=== PATIENT | female | born 1980 | race Caucasian/White ===

== ENCOUNTER 2017-01-14 22:10 | Emergency (ER) | payer OTHER ==
[~2017-01-14] VITALS: Ht 160 cm; Wt 68.0 kg
[2017-01-14 22:15] VITALS: BP 137/82
[2017-01-14] MEDS ORDERED: ONDA4TAB10 SL (22:50)
[2017-01-14] MEDS ORDERED: PRED50TA PO (22:50)
[2017-01-14] MEDS ORDERED: AMOX1TAB61 PO (22:50)
--- NOTE | 2017-01-14 22:51 | PHYS DOC ---
Past Medical History Past Medical History: No Pertinent History Past Surgical History: Pacemaker Alcohol Use: None Drug Use: None Adult General Chief Complaint Chief Complaint: EARACHE/EAR PAIN HPI HPI Patient is a 36 year old female who presents with nasal congestion for one week. Patient states she believes she has a sinus infection because she has had similar symptoms before. She states she has tried [id number] medications with no relief. She is currently stating she is also having dental pain as well. Review of Systems Review of Systems Constitutional: Denies fever or chills [] Eyes: Denies change in visual acuity, redness, or eye pain [] HENT: Dental pain and nasal congestion Respiratory: Denies cough or shortness of breath [] Cardiovascular: No additional information not addressed in HPI [] GI: Denies abdominal pain, nausea, vomiting, bloody stools or diarrhea [] : Denies dysuria or hematuria [] Musculoskeletal: Denies back pain or joint pain [] Integument: Denies rash or skin lesions [] Neurologic: Denies headache, focal weakness or sensory changes [] Endocrine: Denies polyuria or polydipsia [] Allergies Allergies Allergies Coded Allergies Type Severity Reaction Last Updated Verified amoxicillin Allergy Mild Nausea 04/14/14 Yes Physical Exam Physical Exam Constitutional: Well developed, well nourished, no acute distress, non-toxic appearance. [] HENT: Normocephalic, atraumatic, bilateral external ears normal, oropharynx moist, no oral exudates, nose normal. [] Patient sounds congested nasally, bilateral nasal turbinates are erythematous and boggy, mild maxillary sinus tenderness on exam. Eyes: PERRLA, EOMI, conjunctiva normal, no discharge. [] Neck: Normal range of motion, no tenderness, supple, no stridor. [] Cardiovascular:Heart rate regular rhythm, no murmur [] Lungs & Thorax: Bilateral breath sounds clear to auscultation [] Abdomen: Bowel sounds normal, soft, no tenderness, no masses, no pulsatile masses. [] Skin: Warm, dry, no erythema, no rash. [] Back: No tenderness, no CVA tenderness. [] Extremities: No tenderness, no cyanosis, no clubbing, ROM intact, no edema. [] Neurologic: Alert and oriented X 3, normal motor function, normal sensory function, no focal deficits noted. [] Psychologic: Affect normal, judgement normal, mood normal. [] Current Patient Data Vital Signs Vital Signs Date Time Temp Pulse Resp B/P Pulse Ox O2 Delivery O2 Flow Rate FiO2 01/14/17 22:15 98.2 87 18 95 Room Air 98.2 EKG EKG [] Radiology/Procedures Radiology/Procedures [] Course & Med Decision Making Course & Med Decision Making Pertinent Labs and Imaging studies reviewed. (See chart for details) Patient has sinus infection, discharged with a give Augmentin Zofran and prednisone. Follow-up with her own PCP in 1-2 weeks. Provided return precautions and discharged in stable condition. Dragon Disclaimer Dragon Disclaimer This electronic medical record was generated, in whole or in part, using a voice recognition dictation system. Departure Departure Impression: Primary Impression: Sinusitis, acute Disposition: 01 HOME, SELF-CARE Condition: STABLE Referrals: WAYNE DUNBAR MD (PCP) follow up with your doctor in one week Patient Instructions: Sinusitis Additional Instructions: You have a sinus infection. Please complete your antibiotics. Scripts Prednisone 50 Mg Tablet1 Tab PO DAILY #5 TAB Prov:BAM PARDO APRN 01/14/17 Ondansetron (Zofran Odt)4 Mg Tab.rapdis1 Tab SL Q8HRS #15 TAB Prov:BAM PARDO APRN 01/14/17 Amoxicillin/Potassium Clav (Augmentin 875-125 Tablet)1 Each Tablet1 Tab PO BID # 20 TAB Prov:BAM PARDO APRN 01/14/17 Problem Qualifiers Primary Impression: Sinusitis, acute Sinusitis location: maxillary Recurrence: not specified as recurrent Qualified Code: J01.00 - Acute maxillary sinusitis, unspecified BAM PARDO APRN Jan 14, 2017 22:51
== END 2017-01-14 22:58 | disposition home or self-care (01) ==
LOC: ER 22:10
DX: J01.00 Acute maxillary sinusitis, unspecified (principal); Z88.1 Allergy status to other antibiotic agents; Z95.0 Presence of cardiac pacemaker
CPT/HCPCS: 99283

== ENCOUNTER 2018-07-12 09:07 | Emergency (ER) | payer OTHER ==
[~2018-07-12] VITALS: Ht 160 cm; Wt 69.4 kg
[2018-07-12 09:07] VITALS: BP 140/77
[~2018-07-12 09:07] MED LIST: AMOX1TAB61 PO; ONDA4TAB10 SL; PRED50TA PO
[2018-07-12] MEDS ORDERED: ERYT1OIN6 OP (09:31)
--- NOTE | 2018-07-12 09:31 | PHYS DOC ---
Past Medical History Past Medical History Allergies Past Surgical History She denies any surgeries Alcohol Use: None Drug Use: None Adult General Chief Complaint Chief Complaint: EYE PROBLEMS HPI HPI This is a pleasant 37-year-old female presenting to the emergency department with conjunctivitis bilaterally. She describes redness that started in the eyes a few days ago. She has mild amount of watery clear drainage. She has a mild itchiness of both eyes that is nonradiating and without alleviating factors. Review of systems is negative for fevers chills nausea vomiting chest pain. All other review of systems is negative unless otherwise noted in history of present illness. ED course: 37-year-old female presenting with conjunctivitis bilaterally. Viral versus bacterial. Started the patient on topical antibiotics to follow-up with eye doctor today in clinic.The patient has been examined and was not found to have an emergency medical condition. The patient was then discharged home in stable condition. They were also instructed to return to the emergency department if they were unable to get the recommended and appropriate follow- up. [id number] discharge instructions and return precautions were given. Patient's questions were answered to their satisfaction. Patient is comfortable with plan. Review of Systems Review of Systems SEE ABOVE. Allergies Allergies Allergies Coded Allergies Type Severity Reaction Last Updated Verified amoxicillin Allergy Mild Nausea 04/14/14 Yes Physical Exam Physical Exam SEE ABOVE Constitutional: Well developed, well nourished, no acute distress, non-toxic appearance. [] HENT: Normocephalic, atraumatic, bilateral external ears normal, oropharynx moist, no oral exudates, nose normal. [] Eyes: PERRLA, EOMI, clear discharge from the eyes Visual Acuity: per nursing notes Visual Hurst: Intact in all four quadrants bilaterally Lac ducts/glands: No swelling Lids w/ evertion: Normal, no foreign body Conj/Lincoln: conjuntiva are injected bilaterally Neck: Normal range of motion, no tenderness, supple, no stridor. [] Cardiovascular:Heart rate regular rhythm, no murmur [] Skin: Warm, dry, no erythema, no rash. [] Back: No tenderness, no CVA tenderness. [] Neurologic: Alert and oriented X 3, normal motor function, normal sensory function, no focal deficits noted. [] Psychologic: Affect normal, judgement normal, mood normal. [] Current Patient Data Vital Signs Vital Signs Date Time Temp Pulse Resp B/P (MAP) Pulse Ox O2 Delivery O2 Flow Rate FiO2 07/12/18 09:07 98.6 74 14 140/77 (98) 100 Room Air 98.6 EKG EKG [] Radiology/Procedures Radiology/Procedures [] Course & Med Decision Making Course & Med Decision Making Pertinent Labs and Imaging studies reviewed. (See chart for details) [] Dragon Disclaimer Dragon Disclaimer This electronic medical record was generated, in whole or in part, using a voice recognition dictation system. Departure Departure Impression: Primary Impression: Conjunctivitis Disposition: HOME, SELF-CARE Condition: STABLE Referrals: WAYNE DUNBAR MD (PCP) Patient Instructions: Conjunctivitis (Viral and Bacterial) Additional Instructions: Thank you for allowing us to participate in your care today. Return to the emergency department you have any new or worsening symptoms, or if you are concerned for any reason. Return to emergency department if you have any new or concerning symptoms including but not limited to fever, chills, nausea, vomiting, intractable pain, any new rashes, chest pain, shortness of air , uncontrolled bleeding, difficulty breathing, and/or vision loss. Follow up with an eye doctor today or tomorrow. Call your Primary Doctor tomorrow and inform them of your visit today. If you do not have a primary care provider we are happy to provide you with a list of our primary care providers contact information. This condition should be evaluated by your primary care physician and any recommended consulting services for continued management within 2-3 days after discharge. If at any time, you are having difficulty getting into your primary care doctor or a specialist, return to the emergency department. Scripts Erythromycin Base (Erythromycin) 1 Gm Oint...g. 1 GM OP QID for 5 Days, #1 MISC 0 Refills Instill ~1 cm ribbon into affected eye Prov: MANDIE GREY MD 07/12/18 MANDIE GREY MD Jul 12, 2018 09:31
== END 2018-07-12 09:39 | disposition home or self-care (01) ==
LOC: ER 09:07
DX: H10.9 Unspecified conjunctivitis (principal); Z88.1 Allergy status to other antibiotic agents
CPT/HCPCS: 99283

== ENCOUNTER 2019-03-08 22:32 | Emergency (ER) | payer OTHER, SELFPAY ==
[~2019-03-08] VITALS: Ht 160 cm; Wt 68.9 kg
[~2019-03-08 22:32] MED LIST changes: +ERYT1OIN6 OP
[2019-03-08] MEDS ORDERED: fentaNYL PF VIAL 100 MCG/2 ML VIAL IV ONE (22:45)
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
[2019-03-08 22:52] LABS: BASO # 0.1 x10^3/uL (0.0-0.2); BASO % 1 % (0-3); EOS # 0.2 x10^3/uL (0.0-0.7); EOS % 2 % (0-3); HEMATOCRIT 39.9 % (36.0-47.0); HEMOGLOBIN 13.4 g/dL (12.0-15.5); LYMPH # 3.4 x10^3/uL (1.0-4.8); LYMPH % 32 % (24-48); MEAN CORPUSCULAR HEMOGLOBIN 32 pg (25-35); MEAN CORPUSCULAR HGB CONC 34 g/dL (31-37); MEAN CORPUSCULAR VOLUME 95 fL (79-100); MONO # 0.8 x10^3/uL (0.0-1.1); MONO % 7 % (0-9); NEUT # 6.3 x10^3uL (1.8-7.7); NEUT % 58 % (31-73); PLATELET COUNT 334 x10^3/uL (140-400); RED BLOOD COUNT 4.21 x10^6/uL (3.50-5.40); RED CELL DISTRIBUTION WIDTH 12.7 % (11.5-14.5); WHITE BLOOD COUNT 10.8 x10^3/uL (4.0-11.0)
[2019-03-08 23:00] LABS: CALCIUM 9.1 mg/dL (8.5-10.1); CREATININE 1.2 mg/dL (0.6-1.0); GFR 50.6; POTASSIUM 3.7 mmol/L (3.5-5.1)
[2019-03-08 23:01] LABS: PROTHROMBIN TIME PATIENT 11.8 SEC (11.7-14.0)
[2019-03-08 23:06] LABS: ALBUMIN 4.1 g/dL (3.4-5.0); ALBUMIN/GLOBULIN RATIO 1.2 (1.0-1.7); TOTAL BILIRUBIN 0.2 mg/dL (0.2-1.0); TOTAL PROTEIN 7.5 g/dL (6.4-8.2)
[2019-03-08] MEDS ORDERED: IOHEXOL 300 MG/ML 100ML VIAL. ONE (23:07)
[2019-03-08] MEDS ORDERED: ONDANSETRON PF 4 MG/2 ML VIAL. ONE (23:38)
[2019-03-08] MEDS ORDERED: IOHEXOL 300 MG/ML 100ML VIAL. IV ONE (23:45)
[2019-03-08] MEDS ORDERED: CONTRAST GIVEN. MC PRN (23:45)
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
[2019-03-09] MEDS ORDERED: ONDANSETRON PF 4 MG/2 ML VIAL. IV ONE (01:00)
[2019-03-09 01:14] LABS: BILIRUBIN,URINE NEGATIVE (NEG); CLARITY,URINE CLEAR; COLOR,URINE YELLOW; NITRITE,URINE POSITIVE (NEG); PROTEIN,URINE NEGATIVE (NEG-TRACE)
[2019-03-09 01:23] LABS: BARBITURATES NEG (NEG); BENZODIAZEPINES NEG (NEG); CANNABINOIDS NEG (NEG); COCAINE NEG (NEG); METHADONE NEG (NEG); OPIATES NEG (NEG); PHENCYCLIDINE NEG (NEG)
[2019-03-09 01:43] LABS: BACTERIA,URINE MANY /HPF (0-FEW); GRANULAR CASTS,URINE OCCASIONAL /HPF; HYALINE CASTS, URINE OCCASIONAL /HPF; RBC,URINE OCC /HPF (0-2); SQUAMOUS EPITHELIAL CELL,UR MOD /LPF; WBC,URINE OCC /HPF (0-4)
[2019-03-09 01:44] LABS: AMPHETAMINE/METHAMPHETAMINE NEG (NEG)
[2019-03-09] MEDS ORDERED: HYDR-3164 PO (01:53)
[2019-03-09] MEDS ORDERED: DIPHTH,PERTUSS(ACELL),TET TOX 0.5 ML DISP.SYRIN. VAX IM ONE (02:30)
[2019-03-09] MEDS ORDERED: IOHEXOL 300 MG/ML 100ML VIAL. ONE (04:23)
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
--- NOTE | 2019-03-10 06:47 | EKG ---
[facility] [address] [place] [address] Test Date: 2019-03-08 Test Time: 22:58:15 Pat Name: CYNTHIA LOERA Department: Room: Gender: F Slide Developer: : 1980 Requested By: OSCAR MIMS Order Number: [id number] Reading MD: Tim Baumann Measurements Intervals Delta Rate: 116 P: 67 IN: 136 QRS: -8 QRSD: 92 T: 30 QT: 332 QTc: 461 Interpretive Statements SINUS TACHYCARDIA LEFTWARD AXIS NONSPECIFIC ST-T WAVE CHANGES. Electronically Signed On 03-12-2019 15:55:31 CDT by Tim Baumann
== END 2019-03-09 02:33 ==
LOC: ER 22:35
DX: S02.2XXA Fracture of nasal bones, initial encounter for closed fracture (principal); S50.311A Abrasion of right elbow, initial encounter; M54.2 Cervicalgia; R68.84 Jaw pain; M25.561 Pain in right knee; F41.9 Anxiety disorder, unspecified; Z88.1 Allergy status to other antibiotic agents; V89.2XXA Person injured in unspecified motor-vehicle accident, traffic, initial encounter; Y93.89 Activity, other specified; Y92.89 Other specified places as the place of occurrence of the external cause; Y99.8 Other external cause status
CPT/HCPCS: 36415; 70450; 70486; 71045; 71260; 73562; 74177; 80053; 80307; 81001; 85025; 85610; 87086; 87186; 90471; 90715; 93005; 96374; 96375; 99285; G0480; J2060; J2405; J3010

== ENCOUNTER 2019-09-15 16:17 | Emergency (ER) | payer OTHER ==
[~2019-09-15] VITALS: Ht 160 cm; Wt 63.5 kg
[~2019-09-15 16:17] MED LIST changes: +HYDR-3164 PO
[2019-09-15 16:57] VITALS: BP 173/90
[2019-09-15] MEDS ORDERED: PERM60CR12 TP (17:11)
--- NOTE | 2019-09-15 17:12 | PHYS DOC ---
Past Medical History Past Medical History: No Pertinent History (SAUL MCKEON APRN) Past Surgical History: Tubal ligation (SAUL MCKEON APRN) Alcohol Use: None Drug Use: None (SAUL MCKEON APRN) Adult General Chief Complaint Chief Complaint: ITCHING HPI HPI Patient is a 38 year old female who presents to the emergency department with complaints of a rash to both of her hands and arms for the last 1-2 months. Patient states that the rash is very itchy, worse at night. She states that it started after she helped a friend that had scabies. Patient denies any fever, drainage from the sites, bleeding, numbness, tingling, weakness, or extremity swelling. She denies any pain at this time. All other ROS is neg unless otherwise noted in HPI. (SAUL MCKEON APRN) Review of Systems Review of Systems See Above (SAUL MCKEON APRN) Allergies Allergies Allergies Coded Allergies Type Severity Reaction Last Updated Verified amoxicillin Allergy Mild Nausea 04/14/14 Yes (OSCAR MIMS MD) Physical Exam Physical Exam See Above Constitutional: Well developed, well nourished, no acute distress, non-toxic appearance. [] HENT: Normocephalic, atraumatic, bilateral external ears normal, nose normal. [] Eyes: PERRLA, EOMI, conjunctiva normal, no discharge. [] Neck: Normal range of motion, no stridor. [] Cardiovascular:Heart rate regular rhythm Lungs & Thorax: Respirations even and unlabored, no retractions, no respiratory distress] Skin: Warm, dry; scattered papular rash consistent with scabies noted to bilateral hands and arms Back: No tenderness [] Extremities: No cyanosis, ROM intact, no edema. [] Neurologic: Alert and oriented X 3, no focal deficits noted. [] Psychologic: Affect normal, judgement normal, mood normal. [] (SAUL MCKEON APRN) Current Patient Data Vital Signs Vital Signs Date Time Temp Pulse Resp B/P (MAP) Pulse Ox O2 Delivery O2 Flow Rate FiO2 09/15/19 16:57 98.8 90 18 173/90 (117) 95 Room Air 98.8 (OSCAR MIMS MD) EKG EKG [] (SAUL MCKEON APRN) Radiology/Procedures Radiology/Procedures [] (SAUL MCKEON APRN) Course & Med Decision Making Course & Med Decision Making Pertinent Labs and Imaging studies reviewed. (See chart for details) [] (SAUL MCKEON APRN) Course & Med Decision Making Staff Physician Addendum: I was working in the ER during the course of this patient's visit. I was available for consultation as needed, but I was not directly involved in the care of this patient. (OSCAR MIMS MD) Dragon Disclaimer Dragon Disclaimer This electronic medical record was generated, in whole or in part, using a voice recognition dictation system. (SAUL MCKEON APRN) Departure Departure Impression: Primary Impression: Scabies Disposition: HOME, SELF-CARE Condition: STABLE Referrals: NO PCP (PCP) Patient Instructions: Scabies Additional Instructions: Fill the prescription and use it as directed. Follow-up with your primary care if doctor symptoms persist. Return to the ER if symptoms worsen. Scripts Permethrin (PERMETHRIN) 60 Gm Cream..g. 1 WENDY TP ONCE, #60 GM 1 Refill Apply the medication from head to toe leave on for 8-10 hours then rinse off. May repeat in one week if symptoms persist. Prov: SAUL MCKEON APRN 09/15/19 SAUL MCKEON APRN Sep 15, 2019 17:12 OSCAR MIMS MD Sep 16, 2019 04:42
== END 2019-09-15 17:59 | disposition home or self-care (01) ==
LOC: ER 16:17
DX: B86 Scabies (principal); Z88.1 Allergy status to other antibiotic agents
CPT/HCPCS: 99282

== ENCOUNTER 2019-11-05 14:39 | Emergency (ER) | payer OTHER ==
[~2019-11-05] VITALS: Ht 160 cm; Wt 68.0 kg
[~2019-11-05 14:39] MED LIST changes: +PERM60CR12 TP
[2019-11-05 15:09] VITALS: BP 150/104
[2019-11-05] MEDS ORDERED: AMOX875T PO (15:51)
--- NOTE | 2019-11-05 15:51 | PHYS DOC ---
Past Medical History Past Medical History: No Pertinent History Past Surgical History: Tubal ligation Alcohol Use: None Drug Use: None Adult General Chief Complaint Chief Complaint: EARACHE/EAR PAIN HPI HPI Patient is a 39 year old female, accompanied by her significant other, who presents to the emergency department with complaints of bilateral ear pain, sore throat, cough, nasal congestion, and painful swallowing for the last 2 days. She denies any fever, nausea, vomiting, diarrhea, abdominal pain, shortness of breath, wheezing, palpitations, or chest pain. She currently rates her ear pain a 10 out of 10 on pain scale, she denies any alleviating factors. Patient denies any injury to her ears or any drainage or bleeding from them. All other ROS is neg unless otherwise noted in HPI. Review of Systems Review of Systems See Above Allergies Allergies Allergies Coded Allergies Type Severity Reaction Last Updated Verified amoxicillin Allergy Mild Nausea 04/14/14 Yes Physical Exam Physical Exam See Above Constitutional: Well developed, well nourished, no acute distress, non-toxic appearance. [] HENT: Normocephalic, atraumatic, bilateral TMs erythemic and bulging without perforation, erythema posterior pharynx, oropharynx moist, no oral exudates, nose normal. [] Eyes: PERRLA, EOMI, conjunctiva normal, no discharge. [] Neck: Normal range of motion, bilateral anterior cervical chain lymphadenopathy and tenderness to palpation, supple, no stridor. [] Cardiovascular:Heart rate regular rhythm, no murmur [] Lungs & Thorax: Bilateral breath sounds clear to auscultation, Respirations even and unlabored, no retractions, no respiratory distress [] Skin: Warm, dry, no erythema, no rash. [] Extremities: No cyanosis, ROM intact Neurologic: Alert and oriented X 3, no focal deficits noted. [] Psychologic: Affect normal, judgement normal, mood normal. [] Current Patient Data Vital Signs Vital Signs Date Time Temp Pulse Resp B/P (MAP) Pulse Ox O2 Delivery O2 Flow Rate FiO2 11/05/19 15:09 98.2 98 18 150/104 (119) 98 Room Air 98.2 EKG EKG [] Radiology/Procedures Radiology/Procedures [] Course & Med Decision Making Course & Med Decision Making Pertinent Labs and Imaging studies reviewed. (See chart for details) [] Dragon Disclaimer Dragon Disclaimer This electronic medical record was generated, in whole or in part, using a voice recognition dictation system. Departure Departure Impression: Primary Impression: Acute otitis media, bilateral Additional Impression: Pharyngitis, acute Disposition: 01 HOME, SELF-CARE Condition: STABLE Referrals: NO PCP (PCP) Patient Instructions: Otitis Media, Adult, [id number], Viral and Bacterial Pharyngitis, [id number] Additional Instructions: Fill the prescription(s) and use as directed. Alternate Tylenol and ibuprofen as needed for fever. Recommend warm salt water gargles as needed for relief of discomfort. Return to the ER if symptoms worsen.Follow-up with your bag sorter in one to 2 days to have the ears rechecked, return to the ER if symptoms worsen. Your blood pressure today in the emergency room was 145/91, I recommend that you follow-up with your primary care doctor about blood pressure for further monitoring. Scripts Amoxicillin (AMOXICILLIN) 875 Mg Tablet 1 TAB PO BID, #20 TAB 0 Refills Prov: SAUL MCKEON APRN 11/05/19 Problem Qualifiers Additional Impression: Pharyngitis, acute Pharyngitis/tonsillitis etiology: unspecified etiology Qualified Codes: J02.9 - Acute pharyngitis, unspecified SAUL MCKEON [employer] Nov 05, 2019 15:51
== END 2019-11-05 16:19 | disposition home or self-care (01) ==
LOC: ER 14:39
DX: H66.93 Otitis media, unspecified, bilateral (principal); J02.9 Acute pharyngitis, unspecified; R09.81 Nasal congestion; R13.10 Dysphagia, unspecified; Z88.1 Allergy status to other antibiotic agents
CPT/HCPCS: 99283